=== PATIENT | female | born 1980 | race Caucasian/White ===

== ENCOUNTER 2024-03-12 07:18 | Emergency (ER) | payer BC, SELFPAY ==
[2024-03-12 07:24] VITALS: BP 137/89; PULSE 75; RESP 18; TEMP 36.7; O2SAT 97; BMI 39.0
--- NOTE | 2024-03-12 07:31 | XR_ITS ---
Examination: Abdomen sonogram, Limited Date and time of exam: March 12, 2024 0741 hours INDICATIONS: Onset right upper abdominal pain beginning 3 days ago Technique: Real-time hong scale transabdominal sonographic images of the upper abdomen obtained. Findings: Normal gallbladder Normal common bile duct 0.2 cm Pancreatic head 2.7 cm Liver 15.7 cm fatty infiltration no focal liver lesions Normal hepatopedal portal venous flow Patent IVC IMPRESSION: Normal gallbladder Normal common bile duct Liver normal size fatty liver no focal liver lesions
--- NOTE | 2024-03-12 07:32 | PD.EDRME ---
Rapid Medical Screening Exam RME Arrival date/time: 03/12/24 07:18 43-year-old female presents emergency department complaint of right upper quadrant abdominal pain and back pain ongoing since Tuesday Chief Complaint: Abdominal Pain Vital signs: Vital Signs Temperature 98.0 F 03/12/24 07:24 Pulse Rate 75 03/12/24 07:24 Respiratory Rate 18 03/12/24 07:24 Blood Pressure 137/89 H 03/12/24 07:24 Pulse Oximetry (%) 97 03/12/24 07:24 Oxygen Delivery Method Room Air 03/12/24 07:24
[2024-03-12 07:50] LABS: Basophils # (Auto) 0.1 Thou/mm3 (0.0-0.2); Basophils % (Auto) 1 % (0-2.5); Eosinophils # (Auto) 0.3 Thou/mm3 (0.0-0.5); Eosinophils % (Auto) 4 % (0-10); Hematocrit 39.3 % (36.0-46.0); Immature Granulocytes % (Auto) 0 % (0-0); Immature Granulocytes Auto 0.02 Thou/mm3 (0.00-0.00); Lymphocytes # (Auto) 2.6 Thou/mm3 (1.0-4.8); Lymphocytes % (Auto) 35 % (10-50); Mean Corpuscular HGB Conc 33.1 g/dl (31.0-37.0); Mean Corpuscular Hemoglobin 29.5 pg (25.0-35.0); Mean Corpuscular Volume 89 fL (80-100); Monocytes # (Auto) 0.8 Thou/mm3 (0.0-0.8); Monocytes % (Auto) 11 % (0-12); Neutrophils # (Auto) 3.6 Thou/mm3 (1.8-7.7); Neutrophils % (Auto) 50 % (37-80); Nucleated Red Blood Cell % 0 /100 WBC (0); Platelet Count 285 Thou/mm3 (140-440); RDW Standard Deviation 41.1 fL (36.4-46.3); Red Blood Count 4.41 Miln/mm3 (4.00-5.20); White Blood Count 7.3 Thou/mm3 (3.6-11.0)
--- NOTE | 2024-03-12 07:50 | EDNOTE_ITS ---
ED General RME/HPI General Chief complaint: Abdominal Pain Stated complaint: BURNING/STABB RUQ ABD PAIN X FRI RADIATING TO BACK Arrival date/time: 03/12/24 07:18 RME / HPI RME / HPI narrative: Chief complaint: 03/12/24 07:18 right upper abdominal pain and back pain since Tuesday HPI: Patient is a 43-year-old female with past medical history of chronic back pain, who presented to emergency department complaint of right upper quadrant abdominal pain, with radiation to the back since Tuesday03/09/2023. Her pain has gotten progressively worse over the last 3 days. She describes her pain as constant, dull and achy. At rest her pain is 4/10, however last night her pain increased to 9/10 and was sharp in nature, after she ate pizza for dinner. She has not noticed any worsening of pain with meals otherwise. She denies any fevers, yellowing of skin or other systemic symptoms. She has no history of cholelithiasis, however does take ibuprofen 800 mg 2?3 times a week for over 2 years now for her chronic back pain. She does not have any epigastric tenderness, denies any nausea or vomiting, and her last bowel movement was 2 days ago which is her normal. Past medical history: Chronic back pain Medication list: Ibuprofen 800 mg as needed, 2?3 times a week Past surgical history: Nil Allergies: NKFDA Social history: Tobacco?Use:?Patient uses a vape ETOH?Use:?Socially Drug?Note:?Denies Social?History?Note:?Lives?at home, independent ADLs Family history: Father?advanced lung cancer with brain metastases, stroke Denies any family history of SCD Onset (ago): day(s) Location: abdomen and right Radiation: back Severity: moderate Severity scale (1-10): 6 Quality: aching and dull Consistency: constant Related Data Previous Rx's ?Medication ?Instructions ?Recorded omeprazole 40 mg capsule,delayed 40 mg PO QDAY 4 weeks #28 caps 03/12/24 release Allergies Allergy/AdvReac Type Severity Reaction Status Date / Time No Known Drug Allergies Allergy Unknown Verified 03/12/24 07:20 Review of Systems Review of Systems Narrative Review of Systems: GENERAL: Denies fevers/chills or diaphoresis. HEENT: Denies headache or visual/hearing changes. Denies nasal discharge. NEURO: Denies unusual weakness or difficulty speaking. CARDIO: Denies chest pain or palpitations. PULM: Denies SOB, coughing, or wheezing. GI: RT upper abdominal pain, denies N/V/C/D. Reports having BMs URO: Denies burning/itching/pain/urinary changes. [employer]: Denies menstrual changes, hot flashes. MSK/EXT/SKIN: Denies joint/skeletal/muscle pain, issues/changes in upper or lower extremities, itchiness, or superficial pain. PSYCH: Cooperative, pleasant mood & affect. The rest of the review of systems is otherwise negative. ED Exam Narrative Physical exam: Constitutional Alert, oriented x4, obese HEENT Vision grossly intact. Patent nares. Trachea midline. Respiratory Chest normal on inspection and clear to auscultation bilaterally. Cardiovascular S1 and S2 audible, RRR. No murmurs or carotid bruit. No gross JVD. Abdominal Soft, mildly tender to palpation in RUQ. BS + Genitourinary No bladder tenderness, no flank pain. Normal to palpation. Musculoskeletal Extremities tone within normal limits. No LE edema. Neurological CN II - XII grossly intact. Extremity motor and sensation grossly intact. Skin Warm, dry and intact. No apparent lesions. Psychiatric Patient has a good affect, is cooperative. Course Quality Measures none Orders Category Date Time Status EKG (ED ONLY) *Do not use* NOW Care 03/12/24 08:34 Active EKG (ED Only) Stat Exams 03/12/24 08:34 Ordered US gall bladder Stat Exams 03/12/24 07:31 Completed CBC Stat Lab 03/12/24 07:32 Completed Comprehensive Metabolic Panel Stat Lab 03/12/24 07:32 Completed HCG Qualitative,Urine Stat Lab 03/12/24 07:41 Completed Lipase Stat Lab 03/12/24 07:32 Completed UA, C/S IF [Urinalysis, C/S if Indicated] Stat Lab 03/12/24 07:41 Completed Vital Signs Vital signs: Vital Signs Temperature 98.0 F 03/12/24 07:24 Pulse Rate 75 03/12/24 07:24 Respiratory Rate 18 03/12/24 07:24 Blood Pressure 137/89 H 03/12/24 07:24 Pulse Oximetry (%) 97 03/12/24 07:24 Oxygen Delivery Method Room Air 03/12/24 07:24 [facility] Patient data External records reviewed:: [facility] previous records Clinical information provided by:: patient Social determinants that could affect healthcare access:: none Patient has the following chronic illnesses:: Chornic back pain How is presenting disease/condition affected by chronic disease/condition?: e xacerbated by Evaluation data The following diagnostics were reviewed and interpreted by me:: lab results and radiology exam(s) Lab and/or radiology exams considered but not ordered:: CT abdo Interpretation Summary: GB US negative, unlikely cholelithiasis Patient advised to avoid fatty foods. Medications Medications considered but not ordered:: Morphine for pain Medication administrations:: None Consultations Consultation(s) initiated? (list below): No Consultation #1 (Physician, Specialty, Details): None Diagnosis Differential Diagnosis ED Complaint MDM: Cholelithiasis, pancreatitis Most likely diagnosis given after review of the tests above:: Benign study and lab work, benign exam. Admission Indicated Admission indicated?: not indicated Explain why admission is indicated or not indicated:: Negative work up and exam - cholelithiasis, choledocholithiasis and pancreatitis ruled out Admission Request Was there a request for admission?: No Disposition Plan Disposition Plan: Discharge Discharge Attestation Discharge Attestation: The patient and all family members were given an opportunity to ask questions and understood the discharge instructions. Discharge instructions specifically effects, indications for sooner follow up or return to the emergency department, and the expected course of current diagnosis. Patient condition: Stable Medical Decision Making MDM Narrative MDM Narrative: Patient is a 43-year-old female with past medical history of chronic back pain, who presented to emergency department complaint of right upper quadrant abdominal pain, with radiation to the back x3 days. GB US wnl, negative for stones or sludge. Lipase wnl, unlikely pancreatitis. Discharge plan: - Follow up with PCP within 1 week from discharge - Recommend switching to Celecoxib for pain control, there is a high risk of GI ulcers with frequent Ibuprofen - Advised to avoid fatty/spicy foods - Ordered Omeprazole x 4 weeks for now, as patient is on NSAIDs at home Differential Diagnosis Differential Diagnosis: Cholelithiasis, pancreatitis Lab Data 03/12/24 07:32 03/12/24 07:32 Labs: Lab Results 03/12/24 03/12/24 Range/Units 07:32 07:41 WBC 7.3 (3.6-11.0) Thou/mm3 RBC 4.41 (4.00-5.20) Miln/mm3 Hgb 13.0 (12.0-16.0) g/dL Hct 39.3 (36.0-46.0) % MCV 89 (80-100) fL MCH 29.5 (25.0-35.0) pg MCHC 33.1 (31.0-37.0) g/dl RDW Std Deviation 41.1 (36.4-46.3) fL Plt Count 285 (140-440) Thou/mm3 Neut % (Auto) 50 (37-80) % Lymph % (Auto) 35 (10-50) % [place] % (Auto) 11 (0-12) % Eos % (Auto) 4 (0-10) % Baso % (Auto) 1 (0-2.5) % Neut # (Auto) 3.6 (1.8-7.7) Thou/mm3 Lymph # (Auto) 2.6 (1.0-4.8) Thou/mm3 [place] # (Auto) 0.8 (0.0-0.8) Thou/mm3 Eos # (Auto) 0.3 (0.0-0.5) Thou/mm3 Baso # (Auto) 0.1 (0.0-0.2) Thou/mm3 Immature Gran # (Auto) 0.02 H (0.00-0.00) Thou/mm3 Absolute Nucleated RBC 0.00 (0.00-0.00) Thou/mm3 Immature Gran % 0 (0-0) % Nucleated RBC % 0 (0) /100 WBC Sodium 139 (136-145) mMol/L Potassium 4.0 (3.4-5.1) mMol/L Chloride 103 (98-107) mMol/L Carbon Dioxide 26.3 (20.0-31.0) mMol/L Anion Gap 10 (7-16) BUN 10 (9-23) mg/dL Creatinine 0.7 (0.6-1.3) mg/dL Estim Creat Clear Calc 154.2 (>60) mL/min eGFR > 60 (60 - ) See Note BUN/Creatinine Ratio 14 (12-20) Ratio Glucose 103 (74-106) mg/dL Calculated Osmolality 276 (275-295) Calcium 9.8 (8.3-10.6) mg/dL Corrected Calcium 9.8 (8.5-10.1) mg/dL Total Bilirubin 0.5 (0.3-1.2) mg/dL AST 12 (0-34) U/L ALT 12 (10-49) U/L Alkaline Phosphatase 45 L (46-116) U/L Total Protein 7.8 (5.7-8.2) gm/dL Albumin 4.9 (3.5-5.0) gm/dL Globulin 2.9 (2.3-3.5) gm/dL Albumin/Globulin Ratio 1.7 (1.2-2.2) Lipase 30 (12-53) U/L Ur Collection Type Clean Catch Urine Color Lt-Yellow (Lt Yel-Yel) Urine Clarity Clear (Clear/Hazy) Urine pH 7.0 (5.0-7.0) Ur Specific [place] 1.021 (1.001-1.035) Urine Protein Negative (Neg - Trace) Urine Glucose (UA) Negative (Negative) Urine Ketones Negative (Negative) Urine Blood Negative (Negative) Urine Nitrite Negative (Negative) Urine Bilirubin Negative (Negative) Urine Urobilinogen (Auto) Negative (0.0-1.0) mg/dL Ur Leukocyte Esterase Negative (Negative) Urine RBC 4 H (0-3) /hpf Urine WBC 1 (0-5) /hpf Ur Squamous Epith Cells 8 H (0-5) /hpf Urine Bacteria Rare (None) Ur Culture Indicated? Not Indicated Urine HCG, Qual Negative Discharge Plan Plan Patient Disposition: HOME (Self Care) Patient condition on transfer: Stable Prescriptions/Referrals Prescriptions/Med Rec: New omeprazole 40 mg capsule,delayed release(DR/EC) 40 mg PO QDAY 28 Days Qty: 28 0RF Referrals: Elvia Hayward MD [Primary Care Provider] - In 1 week Problem List Clinical Impression: Abdominal pain Patient/Caregiver Discharge Instructions Print Language: Korean Stand Alone Forms: [facility] Award Info., Patient Portal Info Letter
[2024-03-12 08:06] LABS: Collection Type, Urine Clean Catch
[2024-03-12 08:08] LABS: HCG Qualitative,Urine Negative
[2024-03-12 08:12] LABS: Bacteria,Urine Rare; Bilirubin,Urine Negative (Negative); Blood,Urine Negative (Negative); Clarity,Urine Clear (Clear/Hazy); Color,Urine Lt-Yellow (Lt Yel-Yel); Culture Indicated,Urine Not Indicated; Glucose, Urine Negative (Negative); Ketones,Urine Negative (Negative); Leukocyte Esterase,Urine Negative (Negative); Nitrite,Urine Negative (Negative); Protein,Urine Negative (Neg - Trace); RBC,Urine 4 /hpf (0-3); Specific Gravity,Urine 1.021 (1.001-1.035); Squamous Epithelial Cell,Urine 8 /hpf (0-5); Urobilinogen,Urine Negative mg/dL (0.0-1.0); WBC,Urine 1 /hpf (0-5)
[2024-03-12 08:25] LABS: Alanine Aminotransferase 12 U/L (10-49); Albumin, Serum 4.9 gm/dL (3.5-5.0); Albumin/Globulin Ratio 1.7 (1.2-2.2); Alkaline Phosphatase 45 U/L (46-116); Anion Gap 10 (7-16); Aspartate Amino Transferase 12 U/L (0-34); BUN/Creatinine Ratio 14 Ratio (12-20); Bilirubin,Total 0.5 mg/dL (0.3-1.2); Blood Urea Nitrogen 10 mg/dL (9-23); Calcium 9.8 mg/dL (8.3-10.6); Calcium (Corrected) 9.8 mg/dL (8.5-10.1); Carbon Dioxide 26.3 mMol/L (20.0-31.0); Chloride 103 mMol/L (98-107); Creatinine (Component) 0.7 mg/dL (0.6-1.3); Estimated Creatinine Clearance 154.2 mL/min (>60); Globulin 2.9 gm/dL (2.3-3.5); Glucose 103 mg/dL (74-106); Lipase 30 U/L (12-53); Osmolality,Calculated 276 (275-295); Sodium 139 mMol/L (136-145); Total Protein 7.8 gm/dL (5.7-8.2); eGFR > 60 See Note
--- NOTE | 2024-03-12 09:54 | PC.NURSE ---
Addendum entered by Alecia Moon RN 03/12/24 09:56: RN ATTEMPTED TO CALL PT AGAIN; PT ASNWERED THIS TIME AND GIVEN VERBAL DISCHARGE INSTRUCTIONS. PT INFORMED THAT PT HAS PRESCRIPTION WELL. Original Note: ATTEMPTED TO CALL PT AT THIS TIME FOR VERBAL DISCHARGE INSTRUCTIONS OVER THE PHONE SINCE PT LEFT WITHOUT DISCHARGE INSTRUCTIONS. NO ANSWER. UNABLE TO LEAVE VOICEMAIL.
== END 2024-03-12 09:18 | disposition home or self-care (01) ==
PROVIDERS: Nurse Practitioner Primary Care; Emergency Provider Emergency Medicine; PCP Family Medicine
DX: R10.11 Right upper quadrant pain (principal); G89.29 Other chronic pain; M54.9 Dorsalgia, unspecified
CPT/HCPCS: 36415; 76705; 80053; 81001; 81025; 83690; 85025; 93005; 99284

== ENCOUNTER → 2024-12-04 | Outpatient (CLI) | payer BC, SELFPAY ==
[2024-12-04 08:02] LABS: Collection Type, Urine Clean Catch
[2024-12-04 08:40] LABS: Basophils # (Auto) 0.1 Thou/mm3 (0.0-0.2); Basophils % (Auto) 1 % (0-2.5); Eosinophils # (Auto) 0.2 Thou/mm3 (0.0-0.5); Eosinophils % (Auto) 4 % (0-10); Hematocrit 36.9 % (36.0-46.0); Hemoglobin 12.4 g/dL (12.0-16.0); Immature Granulocytes Auto 0.01 Thou/mm3 (0.00-0.00); Lymphocytes # (Auto) 2.1 Thou/mm3 (1.0-4.8); Lymphocytes % (Auto) 41 % (10-50); Mean Corpuscular HGB Conc 33.6 g/dl (31.0-37.0); Mean Corpuscular Hemoglobin 30.0 pg (25.0-35.0); Mean Corpuscular Volume 89 fL (80-100); Monocytes # (Auto) 0.7 Thou/mm3 (0.0-0.8); Monocytes % (Auto) 13 % (0-12); Neutrophils # (Auto) 2.1 Thou/mm3 (1.8-7.7); Neutrophils % (Auto) 40 % (37-80); Nucleated Red Blood Cell # 0.00 Thou/mm3 (0.00-0.00); Nucleated Red Blood Cell % 0 /100 WBC (0); Platelet Count 271 Thou/mm3 (140-440); RDW Standard Deviation 39.8 fL (36.4-46.3); Red Blood Count 4.13 Miln/mm3 (4.00-5.20); White Blood Count 5.2 Thou/mm3 (3.6-11.0)
[2024-12-04 08:51] LABS: Bilirubin,Urine Negative (Negative); Blood,Urine 2+ (Negative); Clarity,Urine Clear (Clear/Hazy); Color,Urine Lt-Yellow (Lt Yel-Yel); Culture Indicated,Urine Not Indicated; Glucose, Urine Negative (Negative); Ketones,Urine Negative (Negative); Leukocyte Esterase,Urine Negative (Negative); Nitrite,Urine Negative (Negative); PH,Urine 6.0 (5.0-7.0); Protein,Urine Negative (Neg - Trace); RBC,Urine 3 /hpf (0-3); Specific Gravity,Urine 1.018 (1.001-1.035); Squamous Epithelial Cell,Urine 2 /hpf (0-5); Urobilinogen,Urine Negative mg/dL (0.0-1.0); WBC,Urine < 1 /hpf (0-5)
[2024-12-04 09:07] LABS: Alanine Aminotransferase 13 U/L (10-49); Albumin, Serum 4.1 gm/dL (3.5-5.0); Albumin/Globulin Ratio 1.7 (1.2-2.2); Alkaline Phosphatase 37 U/L (46-116); Anion Gap 9 (7-16); Aspartate Amino Transferase 13 U/L (0-34); BUN/Creatinine Ratio 11 Ratio (12-20); Bilirubin,Total 0.3 mg/dL (0.3-1.2); Blood Urea Nitrogen 9 mg/dL (9-23); Calcium 9.2 mg/dL (8.3-10.6); Calcium (Corrected) 9.2 mg/dL (8.5-10.1); Carbon Dioxide 26.3 mMol/L (20.0-31.0); Cardiac Risk Estimate 2.2 RATIO (3.7-5.6); Chloride 106 mMol/L (98-107); Cholesterol 119 mg/dL (132-200); Creatinine (Component) 0.8 mg/dL (0.6-1.3); Globulin 2.4 gm/dL (2.3-3.5); Glucose 94 mg/dL (74-106); HDL Cholesterol 54 mg/dL (40-60); LDL Cholesterol,Calculated 47 mg/dL (0-130); Osmolality,Calculated 279 (275-295); Potassium 3.8 mMol/L (3.4-5.1); Sodium 141 mMol/L (136-145); Thyroid Stimulating Hormone 1.67 uIU/mL (0.55-4.78); Total Protein 6.5 gm/dL (5.7-8.2); Triglycerides 90 mg/dL (30-150); eGFR > 60 See Note
== END | disposition home or self-care (01) ==
PROVIDERS: PCP Family Medicine; Referring Provider Nurse Practitioner Family; Visit Provider Nurse Practitioner Family
DX: Z00.00 Encounter for general adult medical examination without abnormal findings (principal)
CPT/HCPCS: 36415; 80053; 80061; 81001; 84443; 85025